=== PATIENT | female | born 1955 | race Caucasian/White ===

== ENCOUNTER 2017-09-14 13:20 | Emergency (ER) | payer MEDICAID ==
[~2017-09-14] VITALS: Ht 160 cm; Wt 59.4 kg
[2017-09-14 13:39] VITALS: Ht 160 cm; Wt 59.4 kg
[2017-09-14 15:00] LABS: BASOPHIL % 0.4 % (0-2); PLATELET COUNT 185 x10^3mcL (130-400); RED CELL DISTRIBUTION WIDTH 12.2 % (11.5-14.5)
[2017-09-14 15:08] LABS: CALCIUM 8.6 mg/dL (8.5-10.1); CARBON DIOXIDE 30.6 mmol/L (21-32); CHLORIDE SERUM 101 mmol/L (98-107); CREATININE SERUM 0.6 mg/dL (0.6-1.0); GFR1 > 60 mL/min; GLUCOSE SERUM 335 mg/dL (74-106); POTASSIUM SERUM 4.2 mmol/L (3.5-5.1); SODIUM SERUM 136 mmol/L (136-145)
[2017-09-14 15:22] LABS: ALBUMIN 3.6 g/dL (3.4-5.0); ALKALINE PHOSPHATASE 220 U/L (46-116); ALT/SGPT 34 U/L (14-59); AMYLASE 59 U/L (25-115); AST/SGOT 19 U/L (15-37); BILIRUBIN TOTAL 0.5 mg/dL (0.20-1.00); CHOLESTEROL 168 mg/dL (<200); HDL CHOLESTEROL 49 mg/dL (40-60); LIPASE 302 IU/L (73-393); T4(THYROXINE) 4.9 ug/dL (4.7-13.3); TOTAL PROTEIN, SERUM 7.1 g/dL (6.4-8.2)
[2017-09-14 15:27] LABS: microscopic required? NO
[2017-09-14 16:10] LABS: urine erythrocyte NEGATIVE (NEGATIVE)
[2017-09-14 16:36] LABS: AMPHETAMINE QUAL UR NONE DETECTED (NEG <=1000)
[2017-09-14 17:20] VITALS: BP 112/65
== END 2017-09-14 17:21 | disposition home or self-care (01) ==
LOC: ED 13:20
PROVIDERS: Emergency Medicine
DX: H16.213 Exposure keratoconjunctivitis, bilateral (principal); E11.65 Type 2 diabetes mellitus with hyperglycemia; F12.90 Cannabis use, unspecified, uncomplicated
CPT/HCPCS: 36600; 83880; J7030; Q0092